=== PATIENT | female | born 1990 | race Caucasian/White ===

== ENCOUNTER → 2022-07-14 07:06 | Outpatient (CLI) | payer OTHER, SELFPAY ==
--- NOTE | ~2022-07-14 | MR_ITS ---
EXAMINATION: MR foot RT wo con DATE: 07/14/2022 07:52 INDICATION: Plantar plate tear with right foot pain at the base of the first and second toes after hi sunil 2 weeks prior and palpable pop one week prior. TECHNIQUE: Magnetic resonance imaging (MRI) of the right fore/mid foot was performed without intraven ous contrast. Sequences included sagittal T1-weighted FSE, sagittal fluid sensitive FSE STIR, coronal PD-weighted FS FSE, coronal T1-weighted FSE, axial PD-weighted FS FSE, and axial PD-weighted FSE. COMPARISON: None FINDINGS: Right second toe mallet toe deformity with hyperflexion at the distal interphalangeal joint. Alignmen t is otherwise normal throughout the remainder of the right mid and forefoot. Normal bone marrow sign al throughout. No fracture or pathologic marrow replacing process. 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 The Lisfranc ligament complex is normal. The colla teral ligament complexes at the metatarsophalangeal and interphalangeal joints are normal.. The exten sor tendons are normal. The flexor tendons including the plantar plate insertions appear normal. Phys iologic amount fluid in the joint spaces. No effusions, tenosynovitis, bursitis or other abnormal flu id collections. Intrinsic musculature of the visualized mid and forefoot appears normal. IMPRESSION: 1. Mallet toe deformity of the right second toe with hyperflexion at the distal interphalangeal joint which is of indeterminate etiology. The ligaments and tendons appear normal. Reviewed, dictated and finalized at location A. IMPRESSION: 1. Mallet toe deformity of the right second toe with hyperflexion at the distal interphalangeal joint which is of indeterminate etiology. The ligaments and te ndons appear normal.
== END ==
PROVIDERS: PCP Internal Medicine; Visit Provider Podiatrist Foot & Ankle Surgery
DX: M25.579 Pain in unspecified ankle and joints of unspecified foot (principal); M20.5X1 Other deformities of toe(s) (acquired), right foot
CPT/HCPCS: 73718

== ENCOUNTER 2022-08-01 06:40 | Day surgery (SDC) | payer OTHER, SELFPAY ==
[2022-07-24 10:18] VITALS: BMI 21.5
--- NOTE | ~2022-08-01 | XR_ITS ---
EXAMINATION: XR surgery orthopedic DATE: 08/01/2022 09:37 INDICATION: Right second toe arthroplasty TECHNIQUE: 2 fluoroscopic images of the right forefoot were obtained during procedure performed by Dr Marilu Gregory. Radiologist was not present for the imaging or procedure. The amount of fluoroscopy time used during this procedure was 0.2 minutes. COMPARISON: None. FINDINGS: There is widening of the second distal interphalangeal joint space with suggestion of an osteotomy at the head of the middle phalanx. The second toe is fixed with an axially directed percutaneous wire w hich extends from the distal tip of the toe across the distal middle phalanges and into the head of t he proximal phalanx. Age-indeterminate shortening osteotomy with screw fixation at the head/neck of t he second metatarsal. Alignment appears near-anatomic. No fractures identified. IMPRESSION: 1. Fluoroscopy utilized during orthopedic procedure at the right second toe as detailed above. See pr ocedure note for further detail. Reviewed, dictated and finalized at location B. IMPRESSION: 1. Fluoroscopy utilized during orthopedic procedure at the right second toe as detailed above. See procedure note for further detail.
--- NOTE | 2022-08-01 07:04 | P.PNAN_ITS ---
Anes - Initial Pre Proc Eval Procedure: Operation Date: 08/01/22 08:30 Proposed Procedures p Arthroplasty Second Digit Right Foot - Avinash Gregory JR, MD s Roman Osteotomy Second Metatarsal Right Foot - Avinash Gregory JR, MD Date/Time: 08/01/22 07:04 Surgeon: Avinash Gregory JR, MD Pre Op Diagnosis: Mallet Toe 2nd Digit RT Foot, Metatarsalgia RT FT Patient Data Age: 32 Gender: F Height: 1.8 m Weight: 70 kg Allergies Allergy/AdvReac Type Severity Reaction Status Date / Time No Known Allergies Allergy Verified 08/01/22 07:28 Home Medications Medication Instructions Recorded Confirmed Type acyclovir 200 mg capsule 200 mg PO BID 07/24/22 08/01/22 History cetirizine 10 mg tablet (Zyrtec) 10 mg PO DAILY PRN Allergic 07/24/22 08/01/22 History Symptoms mecobalamin (vitamin B12) 1,000 1,000 mcg sublingual DAILY 07/24/22 08/01/22 History mcg disintegrating tablet,sublingual multivit with minerals-iron 18 1 tablet PO DAILY 07/24/22 08/01/22 History mg-folic ac 400 mcg-vit K 25 mcg tablet (Adults Multivitamin) norethindrone 1 mg-ethinyl 1 tablet PO DAILY 07/24/22 08/01/22 History estradiol 20 mcg (21)-iron 75 mg (7) tablet ([place] Fe 04/18 (28)) Patient hx anesthesia problems: none Family hx anesthesia problems: none Results Review: All pre-operative results and documents have been reviewed as part of the pre-operative evaluation. [facility] Social History Social History Smoking status: Never smoker Second hand tobacco smoke exposure: No Alcohol intake: current Substance use type: does not use Living arrangements: with family Spiritual care concerns: No Anes - Eval Final PreProcedure Day of Procedure 08/01/22 07:04 Patient weight: normal Heart: regular rate and rhythm Lungs: clear to auscultation Airway: Mallampati scale class II Neurological: alert and oriented Last oral intake: >/= 8 hours ASA classification: I Emergent: no Anesthetic plan: proceed Anesthesia type and monitoring: general GIVS and standard monitoring Results Review: All pre-operative results and documents have been reviewed as part of the pre- operative evaluation. Informed Consent: The patient's anesthetic plan and its attendant risks and benefits were discusse d with the patient/family/POA. Questions were solicited and answers provided to the satisfaction of the patient/family/POA.
[2022-08-01 07:19] VITALS: BP 117/72; PULSE 93; RESP 18; TEMP 36.6; O2SAT 100; BMI 21.8
--- NOTE | 2022-08-01 07:22 | WPDHPUPDATE1 ---
History and Physical Update Update Date/Time: 08/01/22 07:22 History and Physical has been reviewed, including an updated exam of the patient. There are NO changes in the patient's condition. Risks, benefits, and alternatives have been discussed and questions answered. Patient agrees to proceed with procedure.
[2022-08-01] MEDS: LACTATED RINGERS 1,000 ML 30 ML IV CONT (08:04)
[2022-08-01] MEDS: ceFAZolin SODIUM 2 GM/20 ML SW SYRINGE IV PUSH (08:37)
[2022-08-01] MEDS: LIDOCAINE HCL 2% LOCAL INJ 20 ML VIAL INFILTRATE (08:42)
[2022-08-01 09:36] VITALS: BP 107/52; PULSE 64; RESP 16; TEMP 36.4; O2SAT 100
--- NOTE | 2022-08-01 09:41 | WPDANESPN ---
Anes - Prog Note Post-Op Date/Time: 08/01/22 09:41 Cardiovascular status: normal Respiratory status: normal Airway patency: baseline Mental status: baseline Post-Op hydration status: normal Vital Signs: Last Vital Signs Temp 36.6 C 08/01/22 07:19 Pulse 93 08/01/22 07:19 Resp 18 08/01/22 07:19 BP 117/72 08/01/22 07:19 Pulse Ox 100 08/01/22 07:19 O2 Del Method Room Air 08/01/22 07:19 Pain Score (VAS): 0 Patient Feedback: Patient satisfied with anesthetic care.
[2022-08-01 09:46] VITALS: BP 101/65; PULSE 65; RESP 18; O2SAT 99
[2022-08-01 09:56] VITALS: BP 110/71; PULSE 72; RESP 18; O2SAT 100
--- NOTE | 2022-08-01 10:02 | W.PM.PROC2 ---
Procedure Note - Detailed Date of Procedure 08/01/22 Pre-op Diagnosis 1. Mallet toe 2nd digit right foot 2. Metatarsalgia second metatarsal phalangeal joint right foot Post-op Diagnosis Same Procedure Performed 1. Roman shortening second metatarsal osteotomy right foot 2. Arthroplasty second digit right foot Surgeon Avinash Gregory JR, DPJoslyn Anesthesia MAC and Local Indications Pain to the right forefoot Findings 1. Pain and swelling to the second metatarsal phalangeal joint right foot 2. Flexion contracture to the second digit right foot with a delta middle phlanx Description of Procedure PROCEDURE IN DETAIL: Under mild sedation, the patient was brought into the operating room, placed on the operating table in supine position. A pneumatic ankle tourniquet was placed about the patient's ipsilateral ankle. Following general LMA, a local anesthetic block was obtained about the right foot and ankle utilizing 20 cc of 2% Lidocaine plain and 0.5% Marcaine plain. The foot was then scrubbed, prepped, and draped in the usual aseptic manner. An Esmarch bandage was then used to exsanguinate the patient's foot and the pneumatic ankle tourniquet was then inflated. Surgery began in the following manner: Attention was directed to the second digit of the right foot at the distal interphalangeal joint where two converging semi elliptical incisions were made about the dorsum of the distal interphalangeal joint resecting a small wedge of skin, which was discarded. All bleeders were cauterized as necessary. Next, I made a transverse extensor tenotomy over the joint. I exposed the head of the middle phalanx and the base of the distal phalanx of the affected digit. Moreover, the head of the middle phalanx was resected with an oscillating saw blade, resecting slightly more from the middle phalanx medially as the patient had a delta phalanx with lateralization of the distal aspect of the second digit. Next, I utilized a curette to resect the cartilage from the base of the distal phalanx. Next, I implanted a 0.045 K wire from the distal interphalangeal joint extending out the distal second digit and then retrograded it into the base of the proximal phalanx . Fluoroscopy was used to make sure that the digit and implant were appropriately positioned. The dissection was continued to the dorsal aspect of the 2nd metatarsal head of the right foot where a 2 cm incision was made just medial to the extensor tendon to the 2nd digit. The incision was continued deep down through the subcutaneous tissues using sharp and blunt dissection. All bleeders were cauterized as necessary. A full-length periosteal incision was made overlying the 2nd metatarsal head distally. Next, a sagittal bone saw was used to make an osteotomy starting along the dorsal aspect of the articular surface to the head of the 2nd metatarsal in a parallel fashion to the shaft of the 2nd metatarsal. After this osteotomy was completed, the head of the 2nd metatarsal was noted to float into a more corrected proximal position. I used two guide wires for the Delvin cannulated screws, to maintain position of the shortened second metatarsal within the distal metaphysis. Next, two Marlow 2.0mm partially threaded cannulated screws were driven from dorsal to plantar across the osteotomy site with excellent compression noted. No loss of fixation was noted to the head of the 2nd metatarsal. Fluroscopy was used to make sure that excellent reduction of the second metatarsal length was performed and to make sure that the screws were of appropriate length and orientation. The wound site was then flushed with copious amounts of sterile saline. Next, the periosteum and capsular structures overlying 2nd digit and 2nd metatarsophalangeal joint were reapproximated with 3-0 Vicryl. Next, subcutaneous structures were reapproximated and coapted utilizing 4-0 Vicryl. I reapproximated the extensor tendon overlying the 2nd
== END 2022-08-01 10:40 | disposition home or self-care (01) ==
PROVIDERS: PCP Internal Medicine; Visit Provider Podiatrist Foot & Ankle Surgery
PROC: (CPT 28308; principal; 2022-08-01 08:30)
PROC: (CPT 28750; 2022-08-01 08:30)
DX: M77.41 Metatarsalgia, right foot (principal)
CPT/HCPCS: 28308; 28285; 99199